=== PATIENT | male | born 1995 | race African-American/Black ===

== ENCOUNTER 2019-12-21 13:36 | Inpatient (IN) ==
[2019-12-21] MEDS ORDERED: GEODON IM ONE (14:07)
[2019-12-21] MEDS ORDERED: STERILE WATER INJ. INJ ONE (14:07)
[2019-12-21] MEDS ORDERED: ATIVAN IM ONE (14:07)
[2019-12-21 16:16] LABS: URINE SOURCE CATH
[2019-12-21 16:25] LABS: BILIRUBIN URINE NEGATIVE (NEGATIVE); BLOOD URINE NEGATIVE (NEGATIVE); COLOR STRAW; GLUCOSE URINE NEGATIVE (NEGATIVE); KETONE URINE NEGATIVE (NEGATIVE); LEUKOCYTES URINE NEGATIVE (NEGATIVE); NITRITE URINE NEGATIVE (NEGATIVE); PH URINE 6.5; PROTEIN URINE NEGATIVE (NEGATIVE); SP GRAVITY URINE 1.004; TURBIDITY URINE CLEAR (CLEAR); UROBILINOGEN URINE NORMAL (NORMAL)
[2019-12-21 16:26] LABS: BASO# 0.05 X1000 (0.0-0.2); BASO% 0.6 % (0.0-0.8); EOS# 0.21 X1000 (0.0-0.7); EOS% 2.7 % (0.0-10.0); IMM GRAN# 0.02 X1000 (0.0-0.04); IMM GRAN% 0.3 % (0.0-0.5); LYMPH# 1.46 X1000 (1.2-3.4); LYMPH% 18.9 % (20.5-51.1); MCH 24.4 PG (27-31); MCHC 33.3 g/dL (33-37); MCV 73.2 FL (81-99); MONO# 0.41 X1000 (0.11-0.59); MONO% 5.3 % (1.7-9.3); MPV 9.6 FL (7.4-10.4); NEUT# 5.58 X1000 (1.4-6.5); NEUT% 72.2 % (42.2-75.2); PLT 499 X1000 (130-400); RBC 4.92 XMIL (4.7-6.1); RDW 16.3 % (11.5-14.5); UR EPITHELIAL CELLS <10 /HPF (<10); URINE BACTERIA NEGATIVE /HPF; URINE RBC <10 /HPF (<10); URINE WBC <10 /HPF (<10); WBC 7.73 X1000 (4.8-10.8)
[2019-12-21 16:38] LABS: UR AMPHETAMINES QUAL NONE DETECTED (NONE DETECT); UR BARBITUATES QUAL NONE DETECTED (NONE DETECT); UR BENZODIAZEPIN QUAL PRESUMPTIVE POSITIVE (NONE DETECT); UR CANNABINOIDS QUAL NONE DETECTED (NONE DETECT); UR COCAINE QUAL NONE DETECTED (NONE DETECT); UR METHADONE QUAL NONE DETECTED (NONE DETECT); UR METHAMPHETAMINE QUAL NONE DETECTED (NONE DETECT); UR OPIATES QUAL NONE DETECTED (NONE DETECT); UR OXYCODONE QUAL NONE DETECTED (NONE DETECT); UR PCP QUAL NONE DETECTED (NONE DETECT); UR PROPOXYPHENE QUAL NONE DETECTED (NONE DETECT); UR TCA QUAL NONE DETECTED (NONE DETECT)
[2019-12-21 16:58] LABS: AGAP 20; ALKALINE PHOSPHATASE 117 U/L (32-122); BUN 7 mg/dL (8-22); CALCIUM 8.9 mg/dL (8.8-10.2); CHLORIDE 101 mmol/L (98-107); COSMO 279; CREATININE 0.5 mg/dL (0.7-1.2); ESTIMATED GFR > 60; GLUCOSE 87 mg/dL (70-104); GOT 24 U/L (10-34); GPT 28 U/L (10-44); MAGNESIUM 2.1 mg/dL (1.5-2.7); POTASSIUM 4.2 mmol/L (3.5-5.1); SODIUM 141 mmol/L (136-145); TCO2 20 mmol/L (25-35); TOTAL PROTEIN 8.5 g/dL (6.3-8.3); VALPROIC ACID < 2.80 ug/mL (50-100)
[2019-12-21 17:28] LABS: FREE T4 1.29 ng/dL (0.93-1.70); TSH 2.14 uIUmL (0.27-4.20)
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
[2019-12-22] MEDS ORDERED: MOTRIN ONE ×2 (04:51→19:46)
[2019-12-22] MEDS ORDERED: MOTRIN PO ONE ×2 (04:53→19:38)
[2019-12-22] MEDS ORDERED: ATIVAN IM ONE (05:25)
--- NOTE | 2019-12-22 06:07 | EKG Report ---
Test Performed on : 12/22/2019 05:28:36 AM Test Reason : psych placement Blood Pressure : / mmHG Vent. Rate : 078 BPM Atrial Rate : 078 BPM P-R Int : 150 ms QRS Dur : 092 ms QT Int : 366 ms P-R-T Axes : 057 034 046 degrees QTc Int : 417 ms Sinus rhythm. with marked sinus arrhythmia. with premature ventricular complexes. or fusion complexes Otherwise normal ECG No previous ECGs available Unconfirmed Result
[2019-12-22] MEDS ORDERED: INVANZ 1 GM/NS 1 GM/50 ML IVPB IV ONE (12:31)
[2019-12-22] MEDS: CUBICIN 500 MG in NS 100 ML IV SCH (14:26)
[2019-12-22] MEDS ORDERED: LEXAPRO PO ONE (19:47)
[2019-12-22] MEDS ORDERED: DESYREL PO ONE (19:47)
[2019-12-22] MEDS ORDERED: XANAX PO ONE (19:48)
[2019-12-22] MEDS ORDERED: HALDOL PO SCH (23:03)
[2019-12-22] MEDS ORDERED: HALDOL PO PRN (23:39)
[2019-12-23 07:19] LABS: BASO# 0.05 X1000 (0.0-0.2); BASO% 0.9 % (0.0-0.8); EOS# 0.42 X1000 (0.0-0.7); EOS% 7.3 % (0.0-10.0); HEMOGLOBIN 11.1 g/dL (14.0-18.0); IMM GRAN# 0.01 X1000 (0.0-0.04); IMM GRAN% 0.2 % (0.0-0.5); LYMPH# 2.13 X1000 (1.2-3.4); MCH 24.2 PG (27-31); MCHC 32.6 g/dL (33-37); MCV 74.1 FL (81-99); MONO% 8.7 % (1.7-9.3); MPV 9.6 FL (7.4-10.4); NEUT# 2.64 X1000 (1.4-6.5); NEUT% 45.9 % (42.2-75.2); PLT 460 X1000 (130-400); RBC 4.59 XMIL (4.7-6.1); RDW 16.5 % (11.5-14.5); WBC 5.75 X1000 (4.8-10.8)
[2019-12-23 07:30] LABS: AGAP 12; ALBUMIN 3.4 g/dL (3.5-5.0); ALKALINE PHOSPHATASE 97 U/L (32-122); BUN 12 mg/dL (8-22); CALCIUM 8.9 mg/dL (8.8-10.2); CHLORIDE 100 mmol/L (98-107); COSMO 269; CREATININE 0.6 mg/dL (0.7-1.2); ESTIMATED GFR > 60; GLUCOSE 85 mg/dL (70-104); GOT 22 U/L (10-34); GPT 24 U/L (10-44); POTASSIUM 4.1 mmol/L (3.5-5.1); SODIUM 135 mmol/L (136-145); TCO2 24 mmol/L (25-35); TOTAL PROTEIN 8.1 g/dL (6.3-8.3)
[2019-12-23] MEDS ORDERED: LEXAPRO PO ONE (07:47)
[2019-12-23] MEDS ORDERED: XANAX PO ONE ×3 (07:49→14:31)
[2019-12-23] MEDS ORDERED: NORCO-5 PO ONE (07:50)
[2019-12-23] MEDS: INVANZ 1 GM/NS 1 GM/50 ML IVPB IV SCH (12:15)
[2019-12-23] MEDS ORDERED: FLAGYL PO ONE (13:25)
[2019-12-23] MEDS ORDERED: LOMOTIL PO ONE (13:25)
[2019-12-23] MEDS: CUBICIN 500 MG in NS 100 ML IV SCH (13:58)
[2019-12-23] MEDS ORDERED: LOMOTIL ONE (14:00)
[2019-12-23] MEDS ORDERED: FLAGYL ONE (14:28)
[2019-12-23] MEDS ORDERED: NICODERM PATCH TD ONE (17:24)
[2019-12-23] MEDS ORDERED: DUONEB (A & A) INH PRN (18:38)
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
[2019-12-24] MEDS: XANAX PO PRN ×3 (00:27→21:13)
[2019-12-24] MEDS: NORCO-5 PO PRN ×3 (00:27→21:13)
[2019-12-24] MEDS: DESYREL PO SCH ×2 (00:28→20:55)
[2019-12-24] MEDS ORDERED: INVANZ 1 GM/NS 1 GM/50 ML IVPB IV SCH (09:00)
[2019-12-24] MEDS ORDERED: ERTAPENEM SODIUM IV SCH (09:00)
[2019-12-24] MEDS ORDERED: CUBICIN IV SCH (09:00)
[2019-12-24] MEDS: LEXAPRO PO SCH (09:55)
[2019-12-24] MEDS: INVANZ 1 GM/NS 1 GM/50 ML IVPB IV SCH (12:55)
[2019-12-24] MEDS: CUBICIN 500 MG in NS 100 ML IV SCH (12:56)
--- NOTE | 2019-12-24 22:02 | PROGRESS NOTE ---
DATE: 12/24/2019 SUBJECTIVE: Patient has no new complaints. He is sleeping comfortably, arousable. PHYSICAL EXAM: Vital signs: Temperature 98, pulse 59, respiratory 18, BP 96/60. General: The patient is awake, pleasant, currently in no distress. HEENT: Normocephalic. Neck: Supple. Cardiovascular: Regular rate. Chest: Clear, nonlabored. Abdomen: Soft, nondistended. Extremities: Moves all moves upper extremities without issues. Skin: He has a wound on his left thigh from a previous surgical intervention. ASSESSMENT: 1. Cellulitis of the left thigh. Continue Cubicin and ertapenem as previously prescribed. 2. Bipolar. 3. Chronic alcohol abuse. 4. Chronic tobacco abuse. 5. Paraplegia. PLAN: We are going to continue patient in the hospital, continue his antibiotics. We will discharge him when home arrangements have been made. cc: Saul Felix MD
[2019-12-25] MEDS: LEXAPRO PO SCH (09:47)
[2019-12-25] MEDS: XANAX PO PRN ×2 (09:47→21:27)
[2019-12-25] MEDS: NORCO-5 PO PRN ×2 (09:47→21:26)
[2019-12-25] MEDS: INVANZ 1 GM/NS 1 GM/50 ML IVPB IV SCH (14:39)
[2019-12-25] MEDS: CUBICIN 500 MG in NS 100 ML IV SCH (14:39)
[2019-12-25] MEDS: DESYREL PO SCH (20:25)
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
[2019-12-26] MEDS: LEXAPRO PO SCH (09:30)
[2019-12-26] MEDS: INVANZ 1 GM/NS 1 GM/50 ML IVPB IV SCH (12:11)
[2019-12-26] MEDS: CUBICIN 500 MG in NS 100 ML IV SCH (14:29)
[2019-12-26] MEDS: XANAX PO PRN (14:38)
[2019-12-26] MEDS: NORCO-7.5 PO PRN ×2 (14:38→21:30)
[2019-12-26] MEDS: DESYREL PO SCH (20:12)
--- NOTE | 2019-12-27 01:44 | PROGRESS NOTE ---
DATE: 12/26/2019 SUBJECTIVE: Patient with no complaints. PHYSICAL EXAMINATION: Vital Signs: Reviewed. Temperature 98 degrees, pulse 67, respiratory 18, BP 110/88. General: Patient is pleasant. No distress. HEENT: Normocephalic. Neck: Supple. Cardiovascular: Regular rate. Chest: Clear. Abdomen: Soft. ASSESSMENT: 1. Cellulitis. 2. Chronic alcohol abuse. 3. Bipolar. 4. Chronic tobacco abuse. 5. Paraplegia. PLAN: We are going to continue Cubicin and ertapenem. We will increase his [place] to 7.5 and we will follow. cc: Saul Felix MD
[2019-12-27 05:54] LABS: HEMATOCRIT 34.7 % (42.0-52.0); MCH 23.7 PG (27-31); MCHC 31.7 g/dL (33-37); MCV 74.6 FL (81-99); MPV 10.1 FL (7.4-10.4); RBC 4.65 XMIL (4.7-6.1); RDW 16.7 % (11.5-14.5); WBC 6.62 X1000 (4.8-10.8)
[2019-12-27 05:58] LABS: AGAP 10; ALBUMIN 3.5 g/dL (3.5-5.0); ALKALINE PHOSPHATASE 98 U/L (32-122); BUN 12 mg/dL (8-22); CALCIUM 8.9 mg/dL (8.8-10.2); CHLORIDE 103 mmol/L (98-107); COSMO 273; CREATININE 0.6 mg/dL (0.7-1.2); ESTIMATED GFR > 60; GLUCOSE 96 mg/dL (70-104); GOT 19 U/L (10-34); GPT 19 U/L (10-44); MAGNESIUM 1.7 mg/dL (1.5-2.7); SODIUM 137 mmol/L (136-145); TCO2 24 mmol/L (25-35); TOTAL PROTEIN 7.9 g/dL (6.3-8.3)
[2019-12-27] MEDS: LEXAPRO PO SCH (10:04)
--- NOTE | 2019-12-27 10:35 | PROGRESS NOTE ---
DATE: 12/27/2019 SUBJECTIVE: Patient with no complaints other than his chronic anxiety and bipolar. Still having pain in his left hip but this is unchanged. PHYSICAL EXAMINATION: Temperature 97.6, pulse 68, respiratory rate 20, BP 106/56. General: Patient is pleasant. He is lying in the bed. He is in no distress. He is awake, alert, oriented. HEENT: Normocephalic. Neck: Supple. Cardiovascular: Regular rate. Chest: Clear. Abdomen: Soft. Extremities: He moves his upper extremities well. Has lower extremity paraplegia. Skin: Still has his wound on his left hip that is being addressed by wound therapy. ASSESSMENT: 1. Cellulitis of the left hip. Currently, he is on Cubicin and ertapenem per [facility]. 2. Chronic pain. We will continue [place]. 3. Chronic alcohol abuse. 4. Bipolar. 5. Tobacco abuse. 6. Paraplegia. PLAN: Hopefully, patient can discharge to home with home health the first of the week. Labs currently stable. Vital signs are stable. cc: Saul Felix MD
[2019-12-27] MEDS: INVANZ 1 GM/NS 1 GM/50 ML IVPB IV SCH (12:11)
[2019-12-27] MEDS: CUBICIN 500 MG in NS 100 ML IV SCH (13:48)
[2019-12-27] MEDS: NORCO-7.5 PO PRN (17:54)
[2019-12-27] MEDS: XANAX PO PRN (17:54)
[2019-12-27] MEDS: DESYREL PO SCH (20:10)
[2019-12-28] MEDS: NORCO-7.5 PO PRN (09:50)
[2019-12-28] MEDS: XANAX PO PRN (09:50)
[2019-12-28] MEDS: LEXAPRO PO SCH (09:50)
[2019-12-28 12:09] VITALS: BP 134/66
[2019-12-28] MEDS: INVANZ 1 GM/NS 1 GM/50 ML IVPB IV SCH ×2 (12:30→15:45)
[2019-12-28] MEDS: CUBICIN 500 MG in NS 100 ML IV SCH (15:44)
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
== END 2019-12-28 17:35 | disposition home health service (06) | DRG 602 ==
LOC: EDBD → P.EDIPHOLD 13:36 → P.ED 13:36 → OBSVTOIN 12-22 23:12 → SUATTDRO 12-22 23:12 → P.MEDSURG 12-23 18:29
PROVIDERS: ATTEND Internal Medicine